=== PATIENT | female | born 1965 | race Hispanic/Latino ===

== ENCOUNTER 2017-08-17 07:01 | Day surgery (SDC) | payer OTHER ==
[~2017-08-17] VITALS: Ht 154.9 cm; Wt 71.7 kg
[~2017-08-17 07:01] MED LIST: B-12500 MC1 PO; MULTI VIT PO
[2017-08-17] MEDS ORDERED: PERCOCET 5/325M1 TAB PO (09:33)
[2017-08-17 10:24] VITALS: BP 113/58
== END 2017-08-17 10:15 | disposition home or self-care (01) | DRG 572 ==
LOC: ORM 07:01
PROVIDERS: ATTEND Surgery
PROC: 0JB70ZZ Excision of Back Subcutaneous Tissue and Fascia, Open Approach (ICD-10-PCS; principal; 2017-08-17)
DX: D17.1 Benign lipomatous neoplasm of skin and subcutaneous tissue of trunk (principal)

== ENCOUNTER 2022-05-08 08:47 | Emergency (ER) | payer OTHER ==
[~2022-05-08] VITALS: Ht 154.9 cm; Wt 72.0 kg
[~2022-05-08 08:47] MED LIST changes: +PERCOCET 5/325M1 TAB PO
[2022-05-08] MEDS ORDERED: KEFLEX500 MG PO (09:38)
[2022-05-08 09:53] LABS: URINE BILIRUBIN - DIPSTICK NEGATIVE (NEGATIVE); URINE BLOOD DIPSTICK LARGE (NEGATIVE); URINE GLUCOSE - DIPSTICK NEGATIVE (NEGATIVE); URINE KETONE NEGATIVE (NEGATIVE); URINE PH 7.5 (4.5-8.0); URINE PROTEIN - DIPSTICK 100 mg/dL (NEG-TRACE); URINE UROBILINOGEN - DIPSTICK 0.2 E.U./dL (0.2)
[2022-05-08 09:54] LABS: URINE LEUK ESTERASE SMALL (NEGATIVE); URINE NITRITE - DIPSTICK NEGATIVE (Negative)
[2022-05-08 09:55] LABS: URINE BACTERIA FEW hpf; URINE COLOR RED; URINE RBC >100 RBC/hpf (0-5); URINE SQUAMOUS EPITHELIAL CELL FEW EPI/hpf (0-FEW)
[2022-05-08 11:43] VITALS: BP 161/92
== END 2022-05-08 11:43 | disposition home or self-care (01) | DRG 690 ==
LOC: ED 08:47
PROVIDERS: Nurse Practitioner
DX: N39.0 Urinary tract infection, site not specified (principal); B96.20 Unspecified Escherichia coli [E. coli] as the cause of diseases classified elsewhere; N20.0 Calculus of kidney